=== PATIENT | female | born 1940 | race Caucasian/White ===

== ENCOUNTER 2016-04-20 12:08 | Day surgery (SDC) | payer MEDICARE, BC ==
[~2016-04-20 12:08] MED LIST: ASPIRIN81 MG PO; CELEXA20 MG PO; COZAAR25 MG PO; PERCOCET 325-51 TAB PO; PREDNISONE1 MG PO; ZYLOPRIM100 MG PO
== END 2016-04-20 13:30 | disposition short-term general hospital (02) ==
LOC: SURGOP 12:08
PROC: 3E0R33Z Introduction of Anti-inflammatory into Spinal Canal, Percutaneous Approach (ICD-10-PCS; principal; 2016-04-20)
PROC: 3E0R3BZ Introduction of Anesthetic Agent into Spinal Canal, Percutaneous Approach (ICD-10-PCS; 2016-04-20)
DX: M51.36 Other intervertebral disc degeneration, lumbar region (principal); M47.816 Spondylosis without myelopathy or radiculopathy, lumbar region; M79.1 Myalgia; Z88.0 Allergy status to penicillin; Z88.2 Allergy status to sulfonamides; Z88.8 Allergy status to other drugs, medicaments and biological substances; Z79.82 Long term (current) use of aspirin; Z79.899 Other long term (current) drug therapy
CPT/HCPCS: J1040; Q9967

== ENCOUNTER → 2016-12-14 | Outpatient (CLI) | payer MEDICARE, BC | END | disposition short-term general hospital (02) | LOC: CLPAIN 06:41 | DX: M51.36 Other intervertebral disc degeneration, lumbar region (principal); M47.815 Spondylosis without myelopathy or radiculopathy, thoracolumbar region ==